=== PATIENT | male | born 1980 | race Caucasian/White ===

== ENCOUNTER 2024-07-20 19:55 | Emergency (ER) | payer OTHER ==
[~2024-07-20] VITALS: Ht 175.3 cm; Wt 134.4 kg
[2024-07-20 19:57] VITALS: BP 163/78; TEMP 98.1; O2SAT 97
== END 2024-07-20 22:17 | disposition left against medical advice (07) ==
LOC: M ED 19:55
DX: Z53.21 Procedure and treatment not carried out due to patient leaving prior to being seen by health care provider (principal)

== ENCOUNTER → 2024-07-22 | Outpatient (REF) | payer OTHER ==
[~2024-07-22] MED LIST: BACT800T5 PO; CLIN-250 PO
== END ==
LOC: M SFHCWOUN 15:04
PROVIDERS: ATTEND Surgery
DX: S31.109A Unspecified open wound of abdominal wall, unspecified quadrant without penetration into peritoneal cavity, initial encounter (principal); X58.XXXA Exposure to other specified factors, initial encounter; Y92.9 Unspecified place or not applicable; Y93.9 Activity, unspecified; Y99.9 Unspecified external cause status

== ENCOUNTER 2024-07-25 21:16 | Emergency (ER) | payer OTHER ==
[~2024-07-25] VITALS: Ht 175.3 cm; Wt 134.4 kg
[2024-07-26] MEDS: LIDOCAINE 1% MDV 20ML VIAL SC ONE (01:14)
[2024-07-26] MEDS ORDERED: CLIN-250 PO (01:47)
[2024-07-26] MEDS ORDERED: BACT800T5 PO (01:47)
[2024-07-26] MEDS: BOOSTRIX VACCINE (TETANUS/DIPHTH/ACEL. PERTUSSIS) 0.5ML SYR IM.IMMUN ONE (01:52)
[2024-07-26 01:54] VITALS: BP 148/87; TEMP 98.1; O2SAT 97
== END 2024-07-26 01:58 | disposition home or self-care (01) ==
LOC: M ED 21:16
DX: S01.511A Laceration without foreign body of lip, initial encounter (principal); W54.0XXA Bitten by dog, initial encounter; F10.10 Alcohol abuse, uncomplicated; F12.10 Cannabis abuse, uncomplicated; F17.200 Nicotine dependence, unspecified, uncomplicated; Y92.009 Unspecified place in unspecified non-institutional (private) residence as the place of occurrence of the external cause; Y93.89 Activity, other specified; Y99.9 Unspecified external cause status; Z88.0 Allergy status to penicillin; Z88.5 Allergy status to narcotic agent; Z79.2 Long term (current) use of antibiotics